=== PATIENT | female | born 1945 | race Caucasian/White ===

== ENCOUNTER 2017-03-06 12:32 | Emergency (ER) | payer MEDICARE, BC ==
[~2017-03-06] VITALS: Ht 165.1 cm; Wt 54.0 kg
[2017-03-06 15:17] VITALS: BP 115/51
== END 2017-03-06 15:40 | disposition home or self-care (01) ==
LOC: ER 12:32
DX: L03.011 Cellulitis of right finger (principal)
CPT/HCPCS: 10060; 26010

== ENCOUNTER → 2024-01-01 | Outpatient (CLI) | payer OTHER ==
[2024-01-01 13:41] LABS: Red Cell Distribution Width 14.2 % (11.8-14.3)
[2024-01-01 13:43] LABS: Hematocrit 31.5 % (36.0-46.0); Hemoglobin 10.8 g/dL (12.2-16.2); Mean Corpuscular Hemoglobin 35.9 pg (28.0-32.0); Mean Corpuscular Hgb Conc. 34.1 g/dL (32.0-36.0); Mean Corpuscular Volume 105.3 fL (80.0-100.0); Red Blood Cells 2.99 10^6/uL (4.0-5.20)
[2024-01-01 14:06] LABS: Alanine Aminotransferase 23 U/L (7-40); Albumin 4.5 g/dL (3.2-4.8); Alkaline Phosphatase 99 U/L (46-116); Anion Gap 3 (5-15); Aspartate Aminotransferase 22 U/L (13-40); Blood Urea Nitrogen 22 mg/dL (9-23); Calcium 10.4 mg/dL (8.5-10.1); Carbon Dioxide 31 mmol/L (20-30); Chloride 106 mmol/L (98-107); Cholesterol 125 mg/dL (< 200); Glucose 97 mg/dL (74-106); HDL Cholesterol 61 mg/dL (40-59); LDL Cholesterol 50 mg/dL (< 100); Sodium 140 mmol/L (136-145); Triglycerides 72 mg/dL (< 150)
[2024-01-01 14:07] LABS: Bilirubin, Total 0.7 mg/dL (0.2-1.0); Total Protein 6.8 g/dL (5.7-8.2)
[2024-01-01 15:14] LABS: White Blood Cell 1.4 10^3/uL (4.4-10.8)
[2024-01-01 15:15] LABS: Band Neutrophils % (manual) 0; Basophils % (manual) 0 (0.0-2.0); Blast Cells 0; Eosinophils % (manual) 0 (0-7); Metamyelocytes % 0; Myelocytes % 0; Promyelocytes % 0; Reactive Lymphocytes 0
[2024-01-01 16:37] LABS: Lymphocytes % (manual) 75 (10.0-50.0); Macrocytosis Slight; Monocytes % (manual) 6 (0-12); Platelet Estimate Adequate
[2024-01-01 16:38] LABS: Anisocytosis Slight
== END | disposition home or self-care (01) ==
LOC: LAB 13:24
DX: Z00.01 Encounter for general adult medical examination with abnormal findings (principal); Z12.11 Encounter for screening for malignant neoplasm of colon; E78.5 Hyperlipidemia, unspecified; E03.9 Hypothyroidism, unspecified
CPT/HCPCS: 36415; 80053; 80061; 82306; 83036; 84443; 85007; 85027

== ENCOUNTER 2024-02-22 13:18 | Inpatient (IN) | payer OTHER ==
[2024-02-22] VITALS (9 sets, daily range): BP systolic 111–122; BP diastolic 29–40; PULSE 67–97; RESP 14–24; TEMP 98.2–98.7; O2SAT 93–100
[~2024-02-22] VITALS: Ht 160 cm; Wt 61.3 kg
[2024-02-22 14:00] LABS: Hematocrit 18.8 % (36.0-46.0)
[2024-02-22 14:02] LABS: Mean Corpuscular Hemoglobin 37.6 pg (28.0-32.0); Mean Corpuscular Hgb Conc. 34.4 g/dL (32.0-36.0); Mean Corpuscular Volume 109.2 fL (80.0-100.0); Red Blood Cells 1.72 10^6/uL (4.0-5.20); Red Cell Distribution Width 14.2 % (11.8-14.3)
[2024-02-22 14:05] LABS: Hemoglobin 6.5 g/dL (12.2-16.2); White Blood Cell 1.6 10^3/uL (4.4-10.8)
[2024-02-22 14:07] LABS: Band Neutrophils % (manual) 0; Basophils % (manual) 0 (0.0-2.0); Blast Cells 0; Eosinophils % (manual) 0 (0-7); Metamyelocytes % 0; Myelocytes % 0; Promyelocytes % 0
[2024-02-22 14:14] LABS: Anion Gap 10 (5-15); Carbon Dioxide 23 mmol/L (20-30); Chloride 101 mmol/L (98-107); Potassium 4.3 mmol/L (3.5-5.1); Sodium 134 mmol/L (136-145)
[2024-02-22 14:15] LABS: Calcium 9.9 mg/dL (8.5-10.1)
[2024-02-22 14:17] LABS: Lymphocytes % (manual) 85 (10.0-50.0); Monocytes % (manual) 5 (0-12); Reactive Lymphocytes 3
[2024-02-22 14:18] LABS: Macrocytosis Slight; Platelet Estimate Adequate
[2024-02-22 14:20] LABS: BUN/Creatinine Ratio 19.2 (10.0-20.0); Blood Urea Nitrogen 19 mg/dL (9-23); Glucose 110 mg/dL (74-106)
[2024-02-22] MEDS ORDERED: IPRATROPIUM BROM 0.5 MG/2.5ML INH SOL NEB PRN (15:45)
[2024-02-22] MEDS ORDERED: ALBUTEROL SULF 2.5 MG/0.5ML(0.5%) NEB SOLN NEB PRN (15:45)
[2024-02-22] MEDS ORDERED: LEVO75TA6 PO (15:49)
[2024-02-22] MEDS ORDERED: ATOR10TA52 PO (15:49)
[2024-02-22] MEDS ORDERED: GABA-1250 PO (15:49)
[2024-02-22] MEDS ORDERED: MET25T PO (15:49)
[2024-02-22] MEDS: cefTRIAXone 1GM/50ML D5W 50 ML IV ONE (16:16)
[2024-02-22] MEDS: PANTOPRAZOLE 40 MG/10 ML VIAL INJ IV ONE (16:16)
[2024-02-22 16:19] LABS: Triglycerides 97 mg/dL (< 150)
[2024-02-22 16:20] LABS: LDL Cholesterol 95 mg/dL (< 100)
[2024-02-22 16:21] LABS: HDL Cholesterol 34 mg/dL (40-59)
[2024-02-22 16:22] LABS: Cholesterol 155 mg/dL (< 200)
[2024-02-22] MEDS: AZITHROMYCIN 500MG/ 250ML 250 ML IV ONE (16:34)
[2024-02-22] MEDS ORDERED: ONDANSETRON HCL 4 MG/2 ML VIAL IV PRN (17:00)
[2024-02-22] MEDS: ALBUTEROL SULF 2.5 MG/0.5ML(0.5%) NEB SOLN NEB SCH ×2 (18:40→22:00)
[2024-02-22] MEDS: IPRATROPIUM BROM 0.5 MG/2.5ML INH SOL NEB SCH ×2 (18:40→22:00)
[2024-02-22] MEDS: METOPROLOL TARTRATE 25 MG TAB PO SCH (22:00)
[2024-02-23] VITALS (23 sets, daily range): BP systolic 101–119; BP diastolic 45–53; PULSE 66–87; RESP 16–18; TEMP 97.7–99; O2SAT 93–100
[2024-02-23 00:56] LABS: Hematocrit 19.3 % (36.0-46.0)
[2024-02-23 01:23] LABS: Hemoglobin 6.6 g/dL (12.2-16.2)
[2024-02-23 03:34] LABS: Urine Bacteria None Seen /hpf (None Seen)
[2024-02-23 03:56] LABS: Urine Blood Negative /uL (Negative); Urine Clarity Clear (Clear); Urine Color Light-Yellow (Yellow); Urine Protein, UAD Negative (Negative); Urine Specific Gravity 1.015 (1.001-1.035); Urine Urobilinogen Normal (Negative); Urine WBC <1 /hpf (0 - 5); Urine pH 6.5 (5.0-9.0)
[2024-02-23 04:09] LABS: Rapid Influenza A Negative (Negative); Rapid Influenza B Negative (Negative)
[2024-02-23 04:10] LABS: COVID19 ANTIGEN SOFIA FIA NEGATIVE (NEGATIVE)
[2024-02-23] MEDS: LEVOTHYROXINE SODIUM 25 MCG TAB PO SCH (06:14)
[2024-02-23] MEDS: PANTOPRAZOLE 40 MG/10 ML VIAL INJ IV SCH (10:13)
[2024-02-23] MEDS: cefTRIAXone 1GM/50ML D5W 50 ML IV SCH (10:13)
[2024-02-23] MEDS: ATORVASTATIN 20 MG TAB PO SCH (10:14)
[2024-02-23] MEDS: GABAPENTIN 300 MG CAP PO SCH (10:14)
[2024-02-23 10:23] LABS: Hemoglobin 8.4 g/dL (12.2-16.2)
[2024-02-23 10:25] LABS: Hematocrit 24.2 % (36.0-46.0); Mean Corpuscular Hemoglobin 33.6 pg (28.0-32.0); Mean Corpuscular Hgb Conc. 34.6 g/dL (32.0-36.0); Mean Corpuscular Volume 97.1 fL (80.0-100.0); Red Blood Cells 2.49 10^6/uL (4.0-5.20)
[2024-02-23 10:39] LABS: INR 1.12 (0.9-1.15); Partial Thromboplastin Time 28.8 SEC (24.5-34.5); Prothrombin Time 11.8 sec (9.3-11.8)
[2024-02-23 10:40] LABS: Calcium 9.5 mg/dL (8.5-10.1); Chloride 101 mmol/L (98-107); Potassium 3.7 mmol/L (3.5-5.1); Sodium 132 mmol/L (136-145)
[2024-02-23 10:41] LABS: Anion Gap 8 (5-15); Carbon Dioxide 23 mmol/L (20-30)
[2024-02-23 10:46] LABS: BUN/Creatinine Ratio 16.7 (10.0-20.0); Blood Urea Nitrogen 14 mg/dL (9-23); Glucose 134 mg/dL (74-106)
[2024-02-23 10:51] LABS: White Blood Cell 0.9 10^3/uL (4.4-10.8)
[2024-02-23 10:52] LABS: Red Cell Distribution Width 20.5 % (11.8-14.3)
[2024-02-23 10:54] LABS: Band Neutrophils % (manual) 0; Basophils % (manual) 0 (0.0-2.0); Blast Cells 0; Eosinophils % (manual) 0 (0-7); Metamyelocytes % 0; Myelocytes % 0; Promyelocytes % 0
[2024-02-23] MEDS: AZITHROMYCIN 500MG/ 250ML 250 ML IV SCH (11:09)
[2024-02-23 11:11] LABS: Wright Stain Ready for Review
[2024-02-23 11:20] LABS: Lymphocytes % (manual) 84 (10.0-50.0); Monocytes % (manual) 6 (0-12); Reactive Lymphocytes 3
[2024-02-23 11:21] LABS: Anisocytosis Slight; Platelet Estimate Adequate
[2024-02-23 13:26] LABS: % Iron Saturation 35.9 % (15-50)
[2024-02-23] MEDS ORDERED: TRAZ-228 PO (16:44)
[2024-02-23] MEDS ORDERED: HYDR25TA4 PO (16:44)
[2024-02-23] MEDS ORDERED: CYAN100072 PO (16:44)
[2024-02-23] MEDS ORDERED: IBAN1TAB2 PO (16:44)
[2024-02-23 23:24] LABS: Folate (Folic Acid) 17.05 ng/mL (>5.38)
[2024-02-24] VITALS (16 sets, daily range): BP systolic 91–132; BP diastolic 38–59; PULSE 70–102; RESP 14–20; TEMP 97.8–99; O2SAT 91–100
[2024-02-24 06:13] LABS: Hemoglobin 8.4 g/dL (12.2-16.2)
[2024-02-24 06:18] LABS: Hematocrit 24.5 % (36.0-46.0); Mean Corpuscular Hemoglobin 33.6 pg (28.0-32.0); Mean Corpuscular Hgb Conc. 34.2 g/dL (32.0-36.0); Mean Corpuscular Volume 98.2 fL (80.0-100.0); Red Blood Cells 2.49 10^6/uL (4.0-5.20)
[2024-02-24 06:29] LABS: Red Cell Distribution Width 20.6 % (11.8-14.3)
[2024-02-24 06:32] LABS: White Blood Cell 1.6 10^3/uL (4.4-10.8)
[2024-02-24 06:33] LABS: Band Neutrophils % (manual) 0; Basophils % (manual) 0 (0.0-2.0); Eosinophils % (manual) 0 (0-7); Metamyelocytes % 0; Myelocytes % 0; Promyelocytes % 0
[2024-02-24 06:35] LABS: Alanine Aminotransferase 25 U/L (7-40); Albumin 3.7 g/dL (3.2-4.8); Alkaline Phosphatase 196 U/L (46-116); Anion Gap 7 (5-15); Aspartate Aminotransferase 25 U/L (13-40); BUN/Creatinine Ratio 16.3 (10.0-20.0); Blood Urea Nitrogen 13 mg/dL (9-23); Carbon Dioxide 25 mmol/L (20-30); Chloride 104 mmol/L (98-107); Glucose 117 mg/dL (74-106); Potassium 4.6 mmol/L (3.5-5.1); Sodium 136 mmol/L (136-145)
[2024-02-24 06:36] LABS: Bilirubin, Total 0.4 mg/dL (0.2-1.0); Total Protein 7.4 g/dL (5.7-8.2)
[2024-02-24 10:09] LABS: Blast Cells 2; Lymphocytes % (manual) 71 (10.0-50.0); Monocytes % (manual) 16 (0-12); Reactive Lymphocytes 8
[2024-02-24 10:10] LABS: Anisocytosis Slight; Platelet Estimate Adequate
[2024-02-24] MEDS: IOHEXOL 300 MG/ML 100ML BOTTLE IJ ONE (11:55)
[2024-02-24] MEDS: fentaNYL CITRATE 100 MCG/2 ML VL ONE (11:56)
[2024-02-24] MEDS: methylPREDNISolone SOD SUCC 40 MG/ML VL IV ONE (14:47)
[2024-02-24] MEDS: FUROSEMIDE 40 MG/4 ML VIAL IV ONE (14:47)
[2024-02-24 15:06] LABS: Haptoglobin 547 mg/dL (42-346)
[2024-02-25] VITALS (9 sets, daily range): BP systolic 112–122; BP diastolic 52–58; PULSE 74–95; RESP 16–20; TEMP 97.8–98; O2SAT 92–99
[2024-02-25 07:11] LABS: Basophils # (auto) 0 10 ^3/uL (0-0.2); Eosinophils # (auto) 0 10 ^3/uL (0-0.8); Lymphocytes # (auto) 0.7 10 ^3/uL (0.4-5.4); Monocytes # (auto) 0 10 ^3/uL (0-1.3); Neutrophils # (auto) 0.1 10 ^3/uL (1.6-8.6)
[2024-02-25 07:17] LABS: Basophils % (auto) 0.2 % (0.0-2.0); Eosinophils % (auto) 0.1 % (0.0-7.0); Hematocrit 23.8 % (36.0-46.0); Hemoglobin 8.2 g/dL (12.2-16.2); Mean Corpuscular Hemoglobin 33.9 pg (28.0-32.0); Mean Corpuscular Hgb Conc. 34.5 g/dL (32.0-36.0); Mean Corpuscular Volume 98.1 fL (80.0-100.0); Monocytes % (auto) 1.7 % (0.0-12.0); Neutrophils % (auto) 11.7 % (37.0-80.0); Nucleated Red Blood Cells % 2.5 %; Red Blood Cells 2.42 10^6/uL (4.0-5.20)
[2024-02-25 07:22] LABS: Anion Gap 8 (5-15); Calcium 9.9 mg/dL (8.5-10.1); Carbon Dioxide 24 mmol/L (20-30); Chloride 102 mmol/L (98-107); Potassium 3.9 mmol/L (3.5-5.1); Sodium 134 mmol/L (136-145)
[2024-02-25 07:28] LABS: BUN/Creatinine Ratio 23.3 (10.0-20.0); Blood Urea Nitrogen 20 mg/dL (9-23); Glucose 140 mg/dL (74-106)
[2024-02-25 07:45] LABS: Lymphocytes % (auto) 86.3 % (10.0-50.0); Red Cell Distribution Width 20.3 % (11.8-14.3)
[2024-02-25 07:47] LABS: White Blood Cell 0.8 10^3/uL (4.4-10.8)
[2024-02-25 08:06] LABS: Albumin 2.3 g/dL (2.9-4.4); Alpha-1-Globulin 0.5 g/dL (0.0-0.4); Alpha-2-Globulin 1.2 g/dL (0.4-1.0); Anti-Nuclear Antibody Direct Positive (Negative); Gamma Globulin 1.6 g/dL (0.4-1.8); Globulin Total 4.3 g/dL (2.2-3.9); Protein Total Serum 6.6 g/dL (6.0-8.5)
[2024-02-25 08:25] LABS: Anisocytosis Slight; Platelet Estimate Adequate
[2024-02-25] MEDS ORDERED: AZIT-185 PO (08:41)
[2024-02-25] MEDS ORDERED: CEFP200T15 PO (08:41)
== END 2024-02-25 10:15 | disposition home or self-care (01) | DRG 871 ==
LOC: ER 13:18 → TELE 16:52 → TELE-EAST 23:48 → EAST 02-24 14:21
PROVIDERS: ADMIT Internal Medicine; ATTEND Internal Medicine
PROC: 30233N1 Transfusion of Nonautologous Red Blood Cells into Peripheral Vein, Percutaneous Approach (ICD-10-PCS; principal; 2024-02-22)
PROC: 079T3ZX Drainage of Bone Marrow, Percutaneous Approach, Diagnostic (ICD-10-PCS; 2024-02-23)
DX: A41.59 Other Gram-negative sepsis (principal); J15.69 Pneumonia due to other Gram-negative bacteria; D61.818 Other pancytopenia; E03.9 Hypothyroidism, unspecified; Z20.822 Contact with and (suspected) exposure to COVID-19; D53.9 Nutritional anemia, unspecified; I10 Essential (primary) hypertension; G62.9 Polyneuropathy, unspecified; M19.09 Primary osteoarthritis, other specified site; G47.00 Insomnia, unspecified; E78.5 Hyperlipidemia, unspecified; Z80.0 Family history of malignant neoplasm of digestive organs; Z82.49 Family history of ischemic heart disease and other diseases of the circulatory system; Z79.899 Other long term (current) drug therapy
CPT/HCPCS: 10005; 36415; 71045; 71046; 71250; 72192; 74177; 77012; 80048; 80053; 80061; 81001; 82607; 82728; 82746; 83010; 83540; 83550; 83605; 83615; 83880; 84155; 84165; 84443; 84484; 85007; 85014; 85018; 85025; 85027; 85045; 85610; 85730; 86038; 86850; 86880; 86900; 86901; 86920; 87040; 87278; 87426; 87804; 93005; 94640; 96365; 96368; 96375; 99291; C9113; G0378

== ENCOUNTER → 2024-03-01 | Outpatient (CLI) | payer OTHER ==
[~2024-03-01] MED LIST: ATOR10TA52 PO; AZIT-185 PO; CEFP200T15 PO; CYAN100072 PO; GABA-1250 PO; HYDR25TA4 PO; IBAN1TAB2 PO; LEVO75TA6 PO; MET25T PO; TRAZ-228 PO
[2024-03-01 15:19] LABS: Basophils # (auto) 0 10 ^3/uL (0-0.2); Basophils % (auto) 0.1 % (0.0-2.0); Eosinophils # (auto) 0 10 ^3/uL (0-0.8); Eosinophils % (auto) 0.2 % (0.0-7.0); Hematocrit 26.2 % (36.0-46.0); Hemoglobin 8.7 g/dL (12.2-16.2); Lymphocytes # (auto) 1.5 10 ^3/uL (0.4-5.4); Mean Corpuscular Hemoglobin 32.6 pg (28.0-32.0); Mean Corpuscular Hgb Conc. 33.3 g/dL (32.0-36.0); Mean Corpuscular Volume 97.9 fL (80.0-100.0); Monocytes # (auto) 0 10 ^3/uL (0-1.3); Monocytes % (auto) 1.3 % (0.0-12.0); Neutrophils # (auto) 0 10 ^3/uL (1.6-8.6); Neutrophils % (auto) 3.1 % (37.0-80.0); Nucleated Red Blood Cells % 0.3 %; Red Blood Cells 2.68 10^6/uL (4.0-5.20); Red Cell Distribution Width 19.5 % (11.8-14.3)
[2024-03-01 15:23] LABS: Lymphocytes % (auto) 95.3 % (10.0-50.0)
[2024-03-01 15:24] LABS: White Blood Cell 1.6 10^3/uL (4.4-10.8)
[2024-03-01 15:31] LABS: Alanine Aminotransferase 22 U/L (7-40); Alkaline Phosphatase 137 U/L (46-116); Anion Gap 5 (5-15); BUN/Creatinine Ratio 24.1 (10.0-20.0); Blood Urea Nitrogen 19 mg/dL (9-23); Calcium 10.2 mg/dL (8.5-10.1); Carbon Dioxide 27 mmol/L (20-30); Chloride 106 mmol/L (98-107); Glucose 95 mg/dL (74-106); Potassium 4.2 mmol/L (3.5-5.1); Sodium 138 mmol/L (136-145)
[2024-03-01 15:32] LABS: Aspartate Aminotransferase 18 U/L (13-40); Bilirubin, Total 0.5 mg/dL (0.2-1.0); Total Protein 7.5 g/dL (5.7-8.2)
[2024-03-01 15:59] LABS: Anisocytosis Slight; Platelet Estimate Decreased
== END | disposition home or self-care (01) ==
LOC: LAB 14:43
PROVIDERS: ATTEND Student in an Organized Health Care Education/Training Program
DX: I10 Essential (primary) hypertension (principal)
CPT/HCPCS: 36415; 80053; 85025

== ENCOUNTER 2024-03-18 16:11 | Inpatient (IN) | payer OTHER ==
[~2024-03-18] VITALS: Ht 160 cm; Wt 50.2 kg
[2024-03-18 19:30] VITALS: PULSE 86; RESP 22; O2SAT 99
[2024-03-18 20:32] LABS: Hematocrit 16.5 % (36.0-46.0); Mean Corpuscular Hemoglobin 33.8 pg (28.0-32.0); Mean Corpuscular Hgb Conc. 34.1 g/dL (32.0-36.0); Mean Corpuscular Volume 99.1 fL (80.0-100.0); Red Blood Cells 1.66 10^6/uL (4.0-5.20)
[2024-03-18 20:33] LABS: Red Cell Distribution Width 21.8 % (11.8-14.3)
[2024-03-18 20:34] LABS: Hemoglobin 5.6 g/dL (12.2-16.2); White Blood Cell 1.7 10^3/uL (4.4-10.8)
[2024-03-18 20:35] LABS: Alanine Aminotransferase 18 U/L (7-40); Albumin 4.3 g/dL (3.2-4.8); Alkaline Phosphatase 249 U/L (46-116); Anion Gap 9 (5-15); Aspartate Aminotransferase 14 U/L (13-40); BUN/Creatinine Ratio 19.4 (10.0-20.0); Band Neutrophils % (manual) 0; Basophils % (manual) 0 (0.0-2.0); Blast Cells 0; Blood Urea Nitrogen 25 mg/dL (9-23); Calcium 10.1 mg/dL (8.7-10.4); Carbon Dioxide 22 mmol/L (20-30); Chloride 103 mmol/L (98-107); Eosinophils % (manual) 0 (0-7); Glucose 109 mg/dL (74-106); Lipase 48 U/L (12-53); Metamyelocytes % 0; Myelocytes % 0; Potassium 3.7 mmol/L (3.5-5.1); Promyelocytes % 0; Reactive Lymphocytes 0; Sodium 134 mmol/L (136-145)
[2024-03-18 20:36] LABS: Bilirubin, Total 0.5 mg/dL (0.2-1.0); Total Protein 8.3 g/dL (5.7-8.2)
[2024-03-18] MEDS: ACETAMINOPHEN 500 MG TAB PO ONE (21:32)
[2024-03-18 22:03] LABS: Lymphocytes % (manual) 87 (10.0-50.0); Monocytes % (manual) 7 (0-12)
[2024-03-18 22:04] LABS: Anisocytosis Slight; Platelet Estimate Adequate
[2024-03-18] MEDS: METOPROLOL TARTRATE 25 MG TAB PO SCH (22:49)
[2024-03-18 23:07] VITALS: BP 102/45; PULSE 71; RESP 15; TEMP 98.2
[2024-03-18 23:29] VITALS: BP 119/50; PULSE 80; RESP 17; TEMP 98.7
[2024-03-19] VITALS (12 sets, daily range): BP systolic 101–128; BP diastolic 40–65; PULSE 64–89; RESP 17–21; TEMP 97.5–99.5; O2SAT 94–99
[2024-03-19 06:24] LABS: Hemoglobin 7.7 g/dL (12.2-16.2)
[2024-03-19 06:27] LABS: Hematocrit 22.3 % (36.0-46.0); Mean Corpuscular Hemoglobin 31.9 pg (28.0-32.0); Mean Corpuscular Hgb Conc. 34.7 g/dL (32.0-36.0); Mean Corpuscular Volume 91.8 fL (80.0-100.0); Red Blood Cells 2.43 10^6/uL (4.0-5.20); Red Cell Distribution Width 18.8 % (11.8-14.3)
[2024-03-19] MEDS: LEVOTHYROXINE SODIUM 25 MCG TAB PO SCH (06:32)
[2024-03-19 06:44] LABS: Alanine Aminotransferase 12 U/L (7-40); Albumin 3.5 g/dL (3.2-4.8); Alkaline Phosphatase 203 U/L (46-116); Anion Gap 5 (5-15); Aspartate Aminotransferase 10 U/L (13-40); BUN/Creatinine Ratio 19.5 (10.0-20.0); Blood Urea Nitrogen 16 mg/dL (9-23); Calcium 9.2 mg/dL (8.5-10.1); Carbon Dioxide 24 mmol/L (20-30); Chloride 107 mmol/L (98-107); Glucose 100 mg/dL (74-106); Potassium 3.8 mmol/L (3.5-5.1); Sodium 136 mmol/L (136-145)
[2024-03-19 06:45] LABS: Bilirubin, Total 0.8 mg/dL (0.2-1.0); Total Protein 6.7 g/dL (5.7-8.2)
[2024-03-19 06:52] LABS: White Blood Cell 1.2 10^3/uL (4.4-10.8)
[2024-03-19 06:54] LABS: Band Neutrophils % (manual) 0; Basophils % (manual) 0 (0.0-2.0); Eosinophils % (manual) 0 (0-7); Metamyelocytes % 0; Myelocytes % 0; Promyelocytes % 0
[2024-03-19 08:25] LABS: Blast Cells 4; Lymphocytes % (manual) 84 (10.0-50.0); Monocytes % (manual) 7 (0-12); Reactive Lymphocytes 4
[2024-03-19 08:26] LABS: Platelet Estimate Decreased
[2024-03-19] MEDS ORDERED: VANCOMYCIN PER PHARMACY 0 MG IV SCH (08:45)
[2024-03-19] MEDS ORDERED: VANCOMYCIN 1GM/200ML 200 ML IV ONE (09:00)
[2024-03-19] MEDS: GABAPENTIN 300 MG CAP PO SCH (09:34)
[2024-03-19] MEDS: hydroCHLOROthiazide 25 MG TAB PO SCH (10:00)
[2024-03-19] MEDS: VANCOMYCIN 750mg/150ml 150 ML IV ONE (10:42)
[2024-03-19] MEDS: CEFEPIME 1GM/ 50ML 50 ML IV SCH (10:43)
[2024-03-19] MEDS ORDERED: ATORVASTATIN 20 MG TAB PO SCH (22:00)
[2024-03-20] MEDS ORDERED: VANCOMYCIN 750mg/150ml 150 ML IV SCH (05:00)
[2024-03-22 09:19] LABS: Hepatitis B Surface Antigen Negative (Negative)
[2024-03-22 09:40] LABS: Hepatitis C Antibody Negative (Negative)
== END 2024-03-19 18:00 | disposition home or self-care (01) | DRG 809 ==
LOC: ER 16:11 → TELE 20:36 → TELE-CENTR 20:36
PROVIDERS: ADMIT Internal Medicine; ATTEND Internal Medicine
PROC: 30233N1 Transfusion of Nonautologous Red Blood Cells into Peripheral Vein, Percutaneous Approach (ICD-10-PCS; principal; 2024-03-18)
DX: D61.818 Other pancytopenia (principal); C92.00 Acute myeloblastic leukemia, not having achieved remission; E03.9 Hypothyroidism, unspecified; G62.9 Polyneuropathy, unspecified; G47.00 Insomnia, unspecified; I10 Essential (primary) hypertension; E78.5 Hyperlipidemia, unspecified; D70.9 Neutropenia, unspecified; R50.81 Fever presenting with conditions classified elsewhere; Z82.49 Family history of ischemic heart disease and other diseases of the circulatory system; Z80.0 Family history of malignant neoplasm of digestive organs; Z79.899 Other long term (current) drug therapy
CPT/HCPCS: 36415; 71045; 80053; 83690; 83880; 84484; 85007; 85025; 85027; 86803; 86850; 86900; 86901; 86920; 87081; 87340; G0378

== ENCOUNTER → 2024-03-29 | Outpatient (CLI) | payer OTHER ==
[2024-03-29 11:04] LABS: Basophils # (auto) 0 10 ^3/uL (0-0.2); Eosinophils # (auto) 0 10 ^3/uL (0-0.8); Hemoglobin 8.1 g/dL (12.2-16.2); Neutrophils # (auto) 0 10 ^3/uL (1.6-8.6)
[2024-03-29 11:08] LABS: Basophils % (auto) 0.4 % (0.0-2.0); Eosinophils % (auto) 0.3 % (0.0-7.0); Hematocrit 23.6 % (36.0-46.0); Mean Corpuscular Hemoglobin 31.8 pg (28.0-32.0); Mean Corpuscular Hgb Conc. 34.5 g/dL (32.0-36.0); Mean Corpuscular Volume 92.2 fL (80.0-100.0); Monocytes # (auto) 0.2 10 ^3/uL (0-1.3); Monocytes % (auto) 16.3 % (0.0-12.0); Neutrophils % (auto) 2.8 % (37.0-80.0); Nucleated Red Blood Cells % 0.7 %; Red Blood Cells 2.56 10^6/uL (4.0-5.20); Red Cell Distribution Width 18.7 % (11.8-14.3)
[2024-03-29 13:15] LABS: Lymphocytes % (auto) 80.2 % (10.0-50.0)
[2024-03-29 13:20] LABS: White Blood Cell 1.2 10^3/uL (4.4-10.8)
[2024-03-29 14:53] LABS: Platelet Estimate Decreased
== END | disposition home or self-care (01) ==
LOC: LAB 10:45
PROVIDERS: ATTEND Student in an Organized Health Care Education/Training Program
DX: C92.00 Acute myeloblastic leukemia, not having achieved remission (principal)
CPT/HCPCS: 36415; 85025

== ENCOUNTER 2024-04-10 11:48 | Emergency (ER) | payer OTHER ==
[~2024-04-10] VITALS: Ht 167.6 cm; Wt 68.2 kg
[2024-04-10 14:29] LABS: Hematocrit 20.2 % (36.0-46.0); Mean Corpuscular Hemoglobin 31.9 pg (28.0-32.0); Mean Corpuscular Hgb Conc. 34.5 g/dL (32.0-36.0); Mean Corpuscular Volume 92.5 fL (80.0-100.0); Red Blood Cells 2.18 10^6/uL (4.0-5.20); Red Cell Distribution Width 19.9 % (11.8-14.3); White Blood Cell 3.7 10^3/uL (4.4-10.8)
[2024-04-10 14:32] LABS: Hemoglobin 6.9 g/dL (12.2-16.2)
[2024-04-10 14:34] LABS: Band Neutrophils % (manual) 0; Basophils % (manual) 0 (0.0-2.0); Eosinophils % (manual) 0 (0-7); Metamyelocytes % 0; Myelocytes % 0; Promyelocytes % 0
[2024-04-10 14:36] LABS: Rapid Strep A Screen-Throat Negative
[2024-04-10 14:46] LABS: INR 1.08 (0.9-1.15); Partial Thromboplastin Time 25.9 SEC (24.5-34.5); Prothrombin Time 11.4 sec (9.3-11.8)
[2024-04-10 14:55] LABS: Alanine Aminotransferase 23 U/L (7-40); Albumin 3.9 g/dL (3.2-4.8); Alkaline Phosphatase 198 U/L (46-116); Anion Gap 7 (5-15); Aspartate Aminotransferase 14 U/L (13-40); BUN/Creatinine Ratio 20.2 (10.0-20.0); Bilirubin, Total 0.6 mg/dL (0.2-1.0); Blood Urea Nitrogen 19 mg/dL (9-23); Calcium 10.5 mg/dL (8.5-10.1); Carbon Dioxide 25 mmol/L (20-30); Chloride 101 mmol/L (98-107); Glucose 80 mg/dL (74-106); Magnesium 1.9 mg/dL (1.6-2.6); Potassium 4.3 mmol/L (3.5-5.1); Sodium 133 mmol/L (136-145); Total Protein 8.6 g/dL (5.7-8.2)
[2024-04-10] MEDS ORDERED: IOHEXOL 300 MG/ML 100ML BOTTLE IJ ONE (15:27)
[2024-04-10] MEDS ORDERED: VANCOMYCIN 1GM/200ML 200 ML IV ONE (16:45)
[2024-04-10 16:55] LABS: Lymphocytes % (manual) 46 (10.0-50.0); Monocytes % (manual) 39 (0-12)
[2024-04-10 16:56] LABS: Reactive Lymphocytes 5
[2024-04-10 16:57] LABS: Platelet Estimate Adequate
[2024-04-10 17:04] LABS: Blast Cells 6
[2024-04-10] MEDS: DexAMETHasone SOD PHOS 10MG/1ML VIAL INJ IV ONE (17:11)
[2024-04-10] MEDS: CEFEPIME 1GM/ 50ML 50 ML IV ONE (17:11)
[2024-04-10 18:07] VITALS: BP 131/69; PULSE 74; RESP 15; TEMP 98.1; O2SAT 97
== END 2024-04-10 18:22 | disposition short-term general hospital (02) ==
LOC: EDBD 11:48 → ER 11:48
DX: J36 Peritonsillar abscess (principal); D61.818 Other pancytopenia; C92.00 Acute myeloblastic leukemia, not having achieved remission; I10 Essential (primary) hypertension; E03.9 Hypothyroidism, unspecified; Z88.1 Allergy status to other antibiotic agents; Z79.4 Long term (current) use of insulin; Z79.84 Long term (current) use of oral hypoglycemic drugs; Z98.890 Other specified postprocedural states
CPT/HCPCS: 36415; 70491; 80053; 83605; 83735; 85007; 85027; 85045; 85610; 85730; 87040; 87070; 87880; 96365; 96375; 99285; J0692; J1100; Q9967

== ENCOUNTER 2024-05-02 16:27 | Inpatient (IN) | payer OTHER ==
[~2024-05-02] VITALS: Ht 162.6 cm; Wt 40.3 kg
[2024-05-02] MEDS: SODIUM CHLORIDE 0.9% 1,000 ML IVB ONE (16:53)
[2024-05-02 17:18] LABS: Hematocrit 19.4 % (36.0-46.0); Mean Corpuscular Hemoglobin 28.9 pg (28.0-32.0); Mean Corpuscular Hgb Conc. 32.3 g/dL (32.0-36.0); Mean Corpuscular Volume 89.4 fL (80.0-100.0); Red Blood Cells 2.17 10^6/uL (4.0-5.20); Red Cell Distribution Width 16.9 % (11.8-14.3); White Blood Cell 3.6 10^3/uL (4.4-10.8)
[2024-05-02 17:28] LABS: Hemoglobin 6.3 g/dL (12.2-16.2)
[2024-05-02 17:30] LABS: Band Neutrophils % (manual) 0; Basophils % (manual) 0 (0.0-2.0); Blast Cells 0; Eosinophils % (manual) 0 (0-7); Metamyelocytes % 0; Myelocytes % 0; Promyelocytes % 0; Reactive Lymphocytes 0
[2024-05-02 18:15] LABS: Lymphocytes % (manual) 35 (10.0-50.0); Monocytes % (manual) 63 (0-12); Platelet Estimate Decreased
[2024-05-02] MEDS ORDERED: ONDANSETRON HCL 4 MG/2 ML VIAL IV PRN (21:00)
[2024-05-02] MEDS: MORPHINE SULFATE 4 MG/ML SYR/VIAL IV SCH (21:00)
[2024-05-02] MEDS ORDERED: BISACODYL 10 MG RECT SUPP PR PRN (21:00)
[2024-05-02] MEDS ORDERED: ACETAMINOPHEN 325 MG TAB PO PRN (21:00)
[2024-05-02 21:13] VITALS: BP 140/55; PULSE 77; RESP 15; TEMP 99.3
[2024-05-02 21:38] VITALS: BP 122/86; PULSE 83; RESP 14; TEMP 98.4
[2024-05-02 21:41] VITALS: PULSE 79; RESP 14; O2SAT 94
[2024-05-02] MEDS: DOCUSATE SOD 100 MG CAP PO SCH (22:00)
[2024-05-02 23:55] VITALS: BP 148/52; PULSE 82; RESP 15; TEMP 98.1
[2024-05-03] MEDS: D5W 5% 1,000 ML IV SCH ×2 (06:00→14:41)
[2024-05-03 07:40] VITALS: PULSE 94; RESP 19; O2SAT 97
[2024-05-03] MEDS: ACETAMINOPHEN 650 MG RECT SUPP PR PRN (09:47)
[2024-05-03 15:29] LABS: White Blood Cell 4.1 10^3/uL (4.4-10.8)
[2024-05-03 15:31] LABS: Hematocrit 21.2 % (36.0-46.0); Mean Corpuscular Hemoglobin 27.4 pg (28.0-32.0); Mean Corpuscular Hgb Conc. 32.4 g/dL (32.0-36.0); Mean Corpuscular Volume 84.5 fL (80.0-100.0); Red Blood Cells 2.51 10^6/uL (4.0-5.20); Red Cell Distribution Width 19.5 % (11.8-14.3)
[2024-05-03 15:33] LABS: Chloride 129 mmol/L (98-107); Potassium 3.6 mmol/L (3.5-5.1)
[2024-05-03 15:34] LABS: Anion Gap 8 (5-15); Calcium 8.1 mg/dL (8.7-10.4); Carbon Dioxide 26 mmol/L (20-30)
[2024-05-03 15:39] LABS: BUN/Creatinine Ratio 62.2 (10.0-20.0); Blood Urea Nitrogen 74 mg/dL (9-23); Glucose 155 mg/dL (74-106)
[2024-05-03 15:58] LABS: Sodium 163 mmol/L (136-145)
[2024-05-03 16:06] LABS: Hemoglobin 6.9 g/dL (12.2-16.2)
[2024-05-03 16:08] LABS: Band Neutrophils % (manual) 0; Basophils % (manual) 0 (0.0-2.0); Blast Cells 0; Eosinophils % (manual) 0 (0-7); Metamyelocytes % 0; Myelocytes % 0; Promyelocytes % 0; Reactive Lymphocytes 0
[2024-05-03 17:07] LABS: Anisocytosis Slight; Lymphocytes % (manual) 32 (10.0-50.0); Monocytes % (manual) 67 (0-12)
[2024-05-03 17:08] LABS: Giant Platelets Few; Macrocytosis Slight; Platelet Estimate Decreased
[2024-05-03 21:00] VITALS: BP_SYST 112; BP_SYST 141; BP_DIAS 54; BP_DIAS 73; PULSE 51; PULSE 80; RESP 18; RESP 20; TEMP 97.5; TEMP 97.8; O2SAT 100; O2SAT 98
[2024-05-03 21:30] VITALS: BP 112/54; PULSE 48; RESP 16; TEMP 97.8
[2024-05-03 21:50] VITALS: BP 111/50; PULSE 58; RESP 17; TEMP 98.1
[2024-05-04] VITALS (9 sets, daily range): BP systolic 107–149; BP diastolic 57–87; PULSE 53–81; RESP 16–24; TEMP 96.6–101.3; O2SAT 95–100
[2024-05-04 10:33] LABS: Basophils # (auto) 0 10 ^3/uL (0-0.2); Eosinophils # (auto) 0 10 ^3/uL (0-0.8); Eosinophils % (auto) 0.1 % (0.0-7.0); Lymphocytes # (auto) 0.8 10 ^3/uL (0.4-5.4); Neutrophils # (auto) 0.1 10 ^3/uL (1.6-8.6); Red Cell Distribution Width 17.9 % (11.8-14.3)
[2024-05-04 10:36] LABS: Basophils % (auto) 0.1 % (0.0-2.0); Hematocrit 30.9 % (36.0-46.0); Lymphocytes % (auto) 23.4 % (10.0-50.0); Mean Corpuscular Hgb Conc. 32.3 g/dL (32.0-36.0); Mean Corpuscular Volume 86.9 fL (80.0-100.0); Monocytes # (auto) 2.5 10 ^3/uL (0-1.3); Neutrophils % (auto) 2.6 % (37.0-80.0); Nucleated Red Blood Cells % 0.3 %; Red Blood Cells 3.56 10^6/uL (4.0-5.20); White Blood Cell 3.4 10^3/uL (4.4-10.8)
[2024-05-04 10:41] LABS: Carbon Dioxide 23 mmol/L (20-30)
[2024-05-04 10:46] LABS: Glucose 113 mg/dL (74-106)
[2024-05-04 10:47] LABS: BUN/Creatinine Ratio 39.8 (10.0-20.0)
[2024-05-04 10:49] LABS: Monocytes % (auto) 73.8 % (0.0-12.0)
[2024-05-04 11:00] LABS: Blood Urea Nitrogen 41 mg/dL (9-23)
[2024-05-04 11:04] LABS: Anion Gap 8 (5-15); Chloride 127 mmol/L (98-107); Potassium 4.1 mmol/L (3.5-5.1)
[2024-05-04 11:41] LABS: Sodium 158 mmol/L (136-145)
[2024-05-04] MEDS ORDERED: HYDR-4795 PO (17:08)
[2024-05-04] MEDS ORDERED: OMEP1CAP70 PO (17:09)
[2024-05-05 01:00] VITALS: BP 122/41; PULSE 72; RESP 22; TEMP 101.1; TEMP 97.5; O2SAT 93
[2024-05-05 05:00] VITALS: BP 123/63; PULSE 70; RESP 20; TEMP 98.4; TEMP 99; O2SAT 98
[2024-05-05 07:21] LABS: Basophils # (auto) 0 10 ^3/uL (0-0.2); Calcium 8.3 mg/dL (8.7-10.4); Chloride 125 mmol/L (98-107); Eosinophils # (auto) 0 10 ^3/uL (0-0.8); Hematocrit 28.3 % (36.0-46.0); Hemoglobin 9.3 g/dL (12.2-16.2); Lymphocytes # (auto) 0.9 10 ^3/uL (0.4-5.4); Lymphocytes % (auto) 28.9 % (10.0-50.0); Mean Corpuscular Hemoglobin 28.3 pg (28.0-32.0); Mean Corpuscular Hgb Conc. 32.7 g/dL (32.0-36.0); Mean Corpuscular Volume 86.3 fL (80.0-100.0); Monocytes # (auto) 2.2 10 ^3/uL (0-1.3); Neutrophils # (auto) 0.1 10 ^3/uL (1.6-8.6); Neutrophils % (auto) 2.1 % (37.0-80.0); Potassium 3.4 mmol/L (3.5-5.1); Red Blood Cells 3.28 10^6/uL (4.0-5.20); Sodium 159 mmol/L (136-145); White Blood Cell 3.2 10^3/uL (4.4-10.8)
[2024-05-05 07:22] LABS: Anion Gap 9 (5-15); Carbon Dioxide 25 mmol/L (20-30)
[2024-05-05 07:27] LABS: BUN/Creatinine Ratio 44.3 (10.0-20.0); Blood Urea Nitrogen 39 mg/dL (9-23); Glucose 178 mg/dL (74-106)
[2024-05-05 08:00] VITALS: BP 138/73; PULSE 66; PULSE 75; RESP 14; RESP 19; TEMP 99; O2SAT 100; O2SAT 98
[2024-05-05] MEDS: MORPHINE SULFATE INJ 2 MG/ml SYRG IV PRN (08:44)
[2024-05-05 08:50] VITALS: BP 138/73; PULSE 66; RESP 14; TEMP 99; O2SAT 98
[2024-05-05] MEDS: LORazepam 2MG/ML-1ML VIAL IV PRN (10:10)
[2024-05-05 13:00] VITALS: BP 128/78; PULSE 85; RESP 14; TEMP 99.1; O2SAT 94
== END 2024-05-05 15:31 | disposition hospice, home (50) | DRG 841 ==
LOC: ER 16:27 → EDBD 16:27 → OVERFLOW 05-03 00:38 → WEST WING 05-03 17:57
PROVIDERS: ADMIT Nurse Practitioner; ATTEND Internal Medicine Pulmonary Disease
PROC: 30233N1 Transfusion of Nonautologous Red Blood Cells into Peripheral Vein, Percutaneous Approach (ICD-10-PCS; principal; 2024-05-02)
DX: C95.90 Leukemia, unspecified not having achieved remission (principal); D62 Acute posthemorrhagic anemia; E87.0 Hyperosmolality and hypernatremia; I10 Essential (primary) hypertension; Z66 Do not resuscitate; Z51.5 Encounter for palliative care; Z79.899 Other long term (current) drug therapy
CPT/HCPCS: 36415; 36430; 71045; 80048; 82962; 83605; 85007; 85025; 85027; 86850; 86900; 86901; 86920; 87040; 92610; 93005; 96360; 96361; G0378; J7042